=== PATIENT | female | born 1990 ===

== ENCOUNTER 2019-01-24 20:13 | Emergency (ER) | payer MEDICAID ==
[~2019-01-24] VITALS: Ht 152.4 cm; Wt 58.6 kg
[2019-01-24] MEDS ORDERED: DiphenhydrAMINE HCL 25 MG CAPSULE PO ONE (21:15)
[2019-01-24 22:24] VITALS: BP 92/68
== END 2019-01-24 22:46 | disposition home or self-care (01) ==
LOC: EMS 20:15
DX: G47.00 Insomnia, unspecified (principal); J45.909 Unspecified asthma, uncomplicated; F10.20 Alcohol dependence, uncomplicated; F41.9 Anxiety disorder, unspecified; F32.9 Major depressive disorder, single episode, unspecified; F19.10 Other psychoactive substance abuse, uncomplicated; F17.210 Nicotine dependence, cigarettes, uncomplicated; F15.90 Other stimulant use, unspecified, uncomplicated; F11.90 Opioid use, unspecified, uncomplicated
CPT/HCPCS: 93005